=== PATIENT | female | born 1950 | race Caucasian/White ===

== ENCOUNTER 2020-03-17 15:26 | Inpatient (IN) | payer OTHER ==
[~2020-03-17] VITALS: Ht 167.6 cm; Wt 70.8 kg
[~2020-03-17 15:26] MED LIST: AMBIEN5 MG PO; ARISTADA882 MG/3.2 IM; ATIVAN2 MG PO; FLEET ENEMA133 ML RECTAL; HALOPERIDOL 1 MG1 MG PO; LEVO-T25 MCG PO; LORAZEPAM 2MG2 MG/M1 IM; MILK OF MA400 MG/5 M PO; TYLENOL325 MG PO; VITAMIN D250 MC1 PO
[2020-03-17 17:36] VITALS: BP 135/54
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
[2020-03-17 20:00] VITALS: BP 130/75
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
[2020-03-18 02:02] VITALS: BP 135/54
[2020-03-18 08:39] VITALS: BP 140/86
--- NOTE | 2020-03-18 09:23 | NUR ---
SW called and left a VM for spouse/DPOA to call back to complete th intake and TP.
--- NOTE | 2020-03-18 11:36 | NUR ---
Met with patient in hallway and room to complete initial recreation assessment. Patient was not forth coming with information, appearing suspicious - asking name, title, how long her stay will be, etc. Patient appeared depressed in affect, sat on the edge of her bed, head held to her chest. She asked, "I want to wear this sweater. Why will they hurt me if I wear it?" She could not answer who "they" were. Little information for assessment was gathered as patient stated, "I don't want to talk anymore" and became silent.
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
[2020-03-18 19:19] VITALS: BP 115/52
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
[2020-03-19 07:38] VITALS: BP 125/70
--- NOTE | 2020-03-19 11:15 | NUR ---
SW called spouse to set up a fmaily meeting for tomorrow and left another VM.
--- NOTE | 2020-03-19 11:22 | NUR ---
SUKHWINDER faxed updates to [facility]
--- NOTE | 2020-03-19 11:44 | NUR ---
SUKHWINDER spoke with son Sky who stated he was also a decision maker for his mom. He stated that his dad is not available to help with this admission or d/c. Sukhwinder set up a family meeting for 03/21 at 11 am. Reported this to DR Amos. Sukhwinder completed the intake assessment and TP. Pt has lives at [facility] for at least 1 year and is expected to d/c back there.
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
[2020-03-19 17:38] VITALS: BP 125/70
[2020-03-19 20:01] VITALS: BP 145/65
[2020-03-19 21:31] VITALS: BP 145/65
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
--- NOTE | 2020-03-20 07:51 | EKG ---
[facility] [place] [address] [place] [address] ELECTROCARDIOGRAM REPORT Name: JEAN-PIERRE EPPS Room #: 52-A ADM IN M.R.#: [id number] Admission: 03/17/20 Attend Phys: Mariano Amos DO Discharge: Date of : 50 Report #: [id number] THIS REPORT FOR: cc: Isiah Kim MD, Srinath MD Lundgren,Lorenzo Gonzalez MD [facility] ~ THIS REPORT FOR: //name// [facility] Test Date: 2020-03-19 Test Time: 11:21:54 Pat Name: JEAN-PIERRE EPPS Department: Room: 52 A Gender: F Switchboard Clerk: ISABEL : 1950 Requested By: Mariano Amos Order Number: [id number] MD: Lorenzo Aguilar Measurements Intervals [place] Rate: 58 P: 66 [place]: 188 QRS: 44 QRSD: 82 T: 48 QT: 384 QTc: 378 Interpretive Statements Sinus bradycardia Otherwise normal tracing No previous ECG available for comparison Electronically Signed On 03-20-2020 7:51:32 CDT by Lorezno Aguilar [email or web address] <ELECTRONICALLY SIGNED> By: Lorenzo Aguilar MD, [facility] 03/20/20 0751 [id number] [id number] Lorenzo Aguilar MD, [facility] /EPI
--- NOTE | 2020-03-20 09:42 | NUR ---
Pt was inbed when i first came on duty. When I asked how she was feeling she said she had to rest today, she was "going home today " as her Dr had told her last night. This can not be substanuated in chart. Edith needed encouragement on attenting group this am. Medications taken as ordered, and said she was not that hungry this Am. On assessment, lungs clear x2, pedal pulse equal, boewl sounds faint. last bm yesterday. I asked edith to let nurse know if she has one today. Fluids encouraged.
[2020-03-20 11:19] VITALS: BP 145/65
[2020-03-20 13:12] VITALS: BP 115/42
[2020-03-20 19:25] VITALS: BP 107/66
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
[2020-03-21 07:41] VITALS: BP 127/90
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
[2020-03-21 11:35] VITALS: BP 127/90
[2020-03-21 11:55] LABS: ABSOLUTE NEUTROPHILS 4.4 thou/uL (1.4-8.2); BASOPHILS 0.4 % (0.0-2.0); EOSINOPHILS 0.4 % (0.0-3.0); HEMATOCRIT 43.7 % (37.0-47.0); HEMOGLOBIN 14.7 gm/dL (12.0-15.0); LYMPHOCYTES 23.7 % (24.0-44.0); MCH 30.7 pg (26.0-34.0); MCHC 33.5 g/dL (28.0-37.0); MCV 91.7 fL (80.0-100.0); MONOCYTES 6.2 % (1.0-8.0); PLATELET COUNT 218 thou/uL (150-400); POLYS 69.3 % (36.0-66.0); RBC 4.77 mil/uL (4.20-5.00); RDW 13.6 % (10.5-14.5); WBC 6.3 thou/uL (4.0-11.0)
[2020-03-21 12:13] LABS: CALCIUM 9.5 mg/dL (8.5-10.1); POTASSIUM 3.7 mmol/L (3.5-5.1)
[2020-03-21 12:19] LABS: ALBUMIN 4.2 g/dL (3.4-5.0); TOTAL BILIRUBIN 0.5 mg/dL (0.2-1.0); TOTAL PROTEIN 7.4 g/dL (6.4-8.2)
--- NOTE | 2020-03-21 13:56 | NUR ---
SW attmpted to have a family meeting with pt's son but we could not find the amendment to the [employer], so we requested this information from [facility] per son Sky suggestion. SUKHWINDER then faxed updates to [facility].
[2020-03-21 14:20] LABS: URINE BILIRUBIN NEGATIVE (Negative); URINE BLOOD NEGATIVE (Negative); URINE CLARITY CLEAR; URINE COLOR YELLOW; URINE GLUCOSE-RANDOM* NEGATIVE (Negative); URINE KETONES NEGATIVE (Negative); URINE LEUKOCYTES-REFLEX TRACE (Negative); URINE NITRITE-REFLEX NEGATIVE (Negative); URINE PROTEIN (DIPSTICK) NEGATIVE (Negative); URINE SPECIFIC GRAVITY <= 1.005 (1.005-1.035); URINE UROBILINOGEN 0.2 E.U./dl (0.2-1.0)
[2020-03-21 19:30] VITALS: BP 122/55
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
[2020-03-22 09:12] VITALS: BP 125/59
--- NOTE | 2020-03-22 13:04 | NUR ---
Alert and orientated to person, place but not to time or situation. Took Haldol this AM without difficulty but refused 3 tablets of her vitamin D3 stating that if she took too much her arms would shake. Knew that she was at [facility] but thought it was in [place], [place]. Affect flat but more interactive today. Wanted to go to 6th floor but understood when explained why that wasn't possible. Denies SI/HI. Breath sounds clear t/o. Reg HR auscultated. Color pale pink with brisk capillary refill and palpable peripheral pulses. +1 non pitting edema. Independent with voiding. Active bowel sounds over soft, rounded abdomen. States she had BM this AM. Smear of stool around rectum, yellow-brown. Ambulates with regular, steady, slow gait.
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
[2020-03-23 05:40] VITALS: BP 122/66
[2020-03-23 07:47] VITALS: BP 139/70
--- NOTE | 2020-03-23 09:05 | NUR ---
Assumed care at 0700. Patient was exit seeking waiting for someone to come onto the unit so she could pass by them. She declined breakfast, paced up/down the halls. Angry upon approach.
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
[2020-03-23 21:00] VITALS: BP 122/55
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
[2020-03-24 08:52] VITALS: BP 112/61
[2020-03-24 12:59] VITALS: BP 112/61
--- NOTE | 2020-03-24 15:53 | NUR ---
MEAGAN and dr Amos spoke with Mike spouse and guardian about d/c plans and it was decided to pursue LTC with memory care. Mike is currently getting rehab at , and asked the referral be sent there. Talia at reported that their memory care was full but to sent the referral there anyway. Mike wants to stay in the [place] area, so meagan [facility]
--- NOTE | 2020-03-24 16:16 | NUR ---
[facility] declined due to being full.
[2020-03-24 21:20] VITALS: BP 112/61
--- NOTE | 2020-03-25 08:47 | EKG ---
[facility] [place] [address] ELECTROCARDIOGRAM REPORT Name: JEAN-PIERRE EPPS Room #: 52-A ADM IN M.R.#: [id number] Admission: 03/17/20 Attend Phys: Mariano Amos DO Discharge: Date of : 50 Report #: [id number] THIS REPORT FOR: cc: Isiah Kim MD, Srinath MD Lundgren,Lorenzo Gonzalez MD [facility] ~ THIS REPORT FOR: //name// [facility] Test Date: 2020-03-24 Test Time: 17:01:04 Pat Name: JEAN-PIERRE EPPS Department: Room: 52 A Gender: F Bookkeeping Machine Operator: Martell REED : 1950 Requested By: Mariano Amos Order Number: [id number] MD: Lorenzo Aguilar Measurements Intervals [place] Rate: 65 P: 75 [place]: 198 QRS: 44 QRSD: 101 T: 55 QT: 451 QTc: 469 Interpretive Statements Sinus rhythm Borderline prolonged QT interval Baseline wander in lead(s) V5 Compared to ECG 03/19/2020 11:21:54 Nonspecific change in the T waves Electronically Signed On 03-25-2020 8:46:54 CDT by Lorenzo Aguilar [email or web address] <ELECTRONICALLY SIGNED> By: Lorenzo Aguilar MD, [facility] 03/25/20 0846 00 00 Lorenzo Aguilar MD, [facility] /EPI
--- NOTE | 2020-03-25 09:08 | NUR ---
PT SITTING AT END OF BURT ESCALERA IN A CHAIR. PT HAS EYES CLOSED. ASKED PT IF SHE WANTED WATER OR SOMETHING TO DRINK. PT STATED GO AWAY. ASKED PT IF SHE WOULD TAKE HER HALDO FOR THIS DISBURSING OFFICER SINCE SHE TOOK IT LAST NIGHT, PT DIDN'T ANSWER AT THIS TIME. WILL CHECK BACK IN 30 MIN.
--- NOTE | 2020-03-25 09:49 | NUR ---
PT NOT TAKING MEDICATION. TRIED TO CRUSH HALDOL AND PUT IN APPLE JUICE. PT NEEDED TO GET INJECTION OF HALDOL. ASSISTANCE WITH [address] BHAT, ADM HALDOL 10MG IM. PT WAS ABLE TO STAND WITH ASSISTANCE FROM CHAIR TO W/C AND WHEELED TO ROOM. PT ABLE TO STAND AND LAY DOWN ON THE BED WITHOUT RESISTANCE.
--- NOTE | 2020-03-25 15:42 | NUR ---
PT LAYING IN BED ON HER SIDE. PT LOOKING OUT THE WINDOW. PT REFUSED TO GO TO GROUP. TOLD PT SHE CAN TALK TO THIS SEQUINS STRINGER IF SHE WANTED TO. ASKED PT IF SHE WOULD TAKE PO HALDOL SHE SAID YES. THEN ASKED OK CAN I GIVE IT NOW SHE SAID WELL SHE WOULD THINK ABOUT IT.
--- NOTE | 2020-03-25 16:01 | NUR ---
PT DID TAKE HALDOL WITHOUT ANY ISSUES. PT STATED I HAVE TO TAKE 2 OF THEM. PT SLOW TO TAKING MED CUP. PT VERY PERTICULAR ABOUT WHERE SHE WANTS HER WATER PITCHER ON THE SIDE TABLE.
--- NOTE | 2020-03-25 16:20 | NUR ---
Pt was invited but unable to participate romain hse was sleeping
--- NOTE | 2020-03-25 17:24 | NUR ---
PT WAS AFRAID TO WALK OUT TO DINING ROOM DUE TO THE 2 PILLS SHE TOOK. PT TAKEN TO DINING ROOM VIA RAKESH CHAIR. PT DIDN'T WANT ANYONE TO HELP HER TO GET INTO THE CHAIR OR TRANSFER OVER TO REG. IN DINING ROOM. PT EATING DINNER AT THIS TIME.
[2020-03-25 19:25] VITALS: BP 115/46
--- NOTE | 2020-03-26 04:12 | NUR ---
03-25-20 CARE TRANSFERED 1914 OBSERVED PT RIGHT SIDE LYING RESTING WITH EYES CLOSED IN BED. 2015 PT AAOX2, SKIN W/D, RR EVEN AND NONLABORED ON RA, PT DENIES PAIN AND SI/SH/HI/VAH AT THIS TIME. PT REMAINED CALM AND COOPERATIVE DURING NURSING ASSESSMENT. DURING MEDICATION ADMIN PT BECAME COMBATIVE WITH DELUSIONS OR MANIPULATION STATING "THE ANGLES TELL ME I DON'T NEED TO TAKE THIS MEDICATION, GET OUT OF MY ROOM"; WAITED AND DID MEDICATION ADMIN WITH ROOMMATE AND REPROACH PT ABOUT TAKING HER MEDICATION AND PT STARTED AGAIN WITH "I AM NOT SUPPOSED TO TAKE THAT MEDICATION" SPINNING A DIFFERENT ANGLE ABOUT HER DOCTOR DOES NOT WANT HER TO TAKE IT AND NO SHE DOES NOT HAVE AN IM. PT NON-COMPLIANT WITH 10MG HALDOL PM AND 10MG HALDOL IM LEFT DELTOID ADMIN. PT STARTED VERBAL ABUSING STAFF AND STATED "YOU ALL ARE WICKED WOMEN" DURING NEXT ROUND NOTED PT WAS STANDING BY ROOMMATE AREA WITH ROOMMATE'S GLASSES ON AND GLASS CASE IN HER HAND, HAD TO ASSIST PT WITH REMOVAL OF ROOMATE GLASSES AND GLASS CASE WAS RETRIVED BY FINGER COBBLER AND RN TOGETHER. PT STATED "YOU ARE A LAIR AND A VERY WICKED, NASTY WOMAN". DURING NEXT ROUND NOTED PT RIGHT SIDE LYING RESTING IN BED WITH EYES CLOSED. APPROXIMATELY 0350 NOTED PT WALKING TOWARDS DINING ROOM, WILL CONTINUE TO MONITOR PT PER [facility] PROTOCOL. ZERO S/S OF ACUTE EMOTIONAL OR MEDICAL DISTRESS NOTED.
[2020-03-26 07:49] VITALS: BP 146/62
--- NOTE | 2020-03-26 09:52 | NUR ---
Assumed care 0700. Chanting periodically. Declined Haldol PO, given IM. Ptient reports she is going to court today at 1500 (3PM.) Gave no purpose. Stted she already had breakfast-which she did not have. Ate smll amount of breakfast with room lockout. Went to restroom. Was in there at least 45 minutes. Denied having constipation, declined offer of stool softener/laxative. Stated she is hearing voices. She is hearing God's voice and is being told : The enemy is fighting me and doesn't want to talk to this nurse.
--- NOTE | 2020-03-26 10:46 | NUR ---
Has been excorted away from the exit door to the unit x 4. Doesn't want to be touched. Threatens staff with losing their eyesight if she is touched. Will not comply with staying in her room or the dayroom.
--- NOTE | 2020-03-26 11:09 | NUR ---
DUE TO PT ELOPING THREE OTHER TIMES, SHE IS BEING ASKED TO NOT STAND BY THE DOOR. SHE IS REDIRECTED AWAY FROM THE DOOR. WHEN SHE SEES THIS STERILIZATION TECH, SHE STARTS POINTING AT ME AND TALKING YIDDISH (UNINTELLIGABLE CONVERSATION). SHE HAS BEEN TAKEN FROM THE DOOR THREE TIMES. SHE LOOKS AT ME AND STATES, "IF YOU TOUCH ME YOU WILL GO IMMEDIATELY BLIND!"
--- NOTE | 2020-03-26 12:04 | NUR ---
SW received a VM from [facility] that they are now interested in the pt when she is ready to d/c.
--- NOTE | 2020-03-26 18:25 | NUR ---
ASSUMED CARE AT 0700 THIS MORNING. PT. HAS BEEN IRRITABLE, EXIT SEEKING, REFUSING MEALS, BELIGERENT AT TIMES. SHE TOLD ALL STAFF THEY WOULD GO BLIND IF THEY TOUCHED HER. SHE WAS PLACED 1:1 FOR THE BULK OF THE DAY DUE TO THE CONTINUED IRRITABILITY AND EXIT SEEKING. STAFF TOOK HER AWAY FROM THE DOOR REPEATEDLY (> 7 TIMES) TODAY BEFORE SHE WAS PLACED ON THE 1:1. SHE WAS GIVEN 2 IM'S OF HALDOL AND ONE OF ATIVAN 1 MG. TODAY. SHE REFUSED PO MEDICATIONS TODAY. SHE EVENTUALLY CALMED DOWN AND WAS FOLLOWING SOME DIRECTIONS OF STAFF. SHE ATE BREAKFAST BUT ATE POORLY AT LUNCH. WHEN WORKING WITH THIS RN SHE WILL POINT A FINGER AND BABBLE SOME GIBBERISH AND SAY SHE IS CURSING ME. SHE CONTINUES TO CALL ME BY ANOTHER NAME AND INSIST I AM A MAN AND I WILL GO TO [facility] FOR DRESSING A WOMAN
[2020-03-26 18:32] VITALS: BP 146/62
[2020-03-26 19:37] VITALS: BP 120/69
--- NOTE | 2020-03-27 04:46 | NUR ---
03-26-20 CARE TRANSFERED 1914 OBSERVED PT SUPINE IN BED RESTING WITH EYES CLOSED. 2019 PT AAOX2, SUPINE IN BED RESTING WITH EYES CLOSED, EASILY AROUSABLE. PT CLOSED EYES AND REMAINED CALM DURING NURSING ASSESSMENT, PT DENIES SI/SH/HI/VAH AND PAIN AT THIS TIME. DURING MEDICATION ADMIN. PT STATED "I WON'T TAKE THAT MEDICATION FROM YOU EVIL WOMAN"; A FEW MINUTES LATER AND PT STATED "GOD TOLD BE IT IS OK TO TAKE THE MEDICATION". PT HAS BEEN KNOWN TO CHEEK MEDICATION AND PT STATED "GO AWAY YOU EVIL WOMAN" RN MOVED OUT OF ROOM AND NOTED PT GOING INTO BATHROOM AND HEARD TOILET FLUSH. LATER PT WAS UP AND PRESENTED GROSSLY AGITATED PRN HALDOL IM DELIVERED TO RIGHT DELTOID; PT HAS BEEN UP WALKING HALLWAY OR STANDING BY DOOR EXITING SEEKING. LATER MOVED CHAIR DOWN BY CHAIR AND NOTED PT HAD ALTERNATED FROM SITTING TO STANDING NOTED PT HAS BEEN TALKING TO HER SELF. THROUGHOUT NURSING ROUNDS ZERO S/S OF ACUTE EMOTIONAL OR MEDICAL DISTRESS. WILL CONTINUE TO MONITOR PER [facility] PROTOCOL.
[2020-03-27 07:25] VITALS: BP 128/70
--- NOTE | 2020-03-27 09:43 | NUR ---
0700 ASSUMED CARE OF PATIENT, PATIENT SITTING IN THE WEST HALLWAY NEAR EXIT. PATIENT REFUSED BREAKFAST AT 8AM STATING GOD TOLD HER SHE DOES NOT NEED TO EAT. PATIENT MOVES TO END OF THE ESCALERA STANDING INFRONT OF HER ROOM. PATIENT REFUSED MEDICATION STATING "GOD TOLD ME NOT TO TAKE THEM". PATIENT DID SIT AND EAT A FEW BITE OF BREAKFAST, CONTINUES TO REFUSE MEDICATION. WILL CONTINUE TO OBSERVE
--- NOTE | 2020-03-27 11:58 | NUR ---
PATIENT REFUSED PO MEDICATION THIS AM. 1000 AM HALDOL 10MG IM GIVEN TO LEFT BUTTOCKS WITH ASSISTANCE FROM DIRECTOR OF CODING. PATIENT STATES "GOD DID NOT SAY IT WAS OK FOR THAT". WILL CONTINUE TO OBSERVE
--- NOTE | 2020-03-27 18:38 | NUR ---
AT 1525 HALDOL 12.5 MG IM GIVEN TO RIGHT BUTTOCKS. PATIENT REFUSING PO MEDICATION. PATIENT CONTINUES TO REFER TO GOD STATES IM NOT TO TAKE ANY MEDICATION. PATIENT TALKS FAST AT TIMES AND UNABLE TO UNDERSTAND.
[2020-03-27 23:00] VITALS: BP 128/70
--- NOTE | 2020-03-28 01:30 | NUR ---
Assumed care of patient this pm shift. Patient was wondering the halls and watching the main doors, occassionally standing in front of them waiting for the doors to open. Patient was redirected away from the exit points. Patient is pleasant and states that she has conversations with Tony who either approves or denies decisions to take medications or vital signs. Patient accepted her haldol this evening but would not take her lorazapam as she states "Tony told me not to take it." Patients assessment shows no signs of acute distress. Patients breath sounds are clear, bowel sounds present, and s1 s2 heard with auscultation. Patients affect is flat. Patient is alert and oriented to self and place. Patient ambulates without assistance. We will continue to monitor patient for safety per hospital protocol.
[2020-03-28 07:24] VITALS: BP 109/41
[2020-03-28 11:31] VITALS: BP 140/56
[2020-03-28] MEDS ORDERED: HALOPERIDOL 5 MG5 MG PO (12:05)
[2020-03-28] MEDS ORDERED: LORAZEPAM 0.50.5 MG PO (12:06)
[2020-03-28] MEDS ORDERED: VITAMIN D325 MC1 PO (12:06)
[2020-03-28 12:12] LABS: CALCIUM 9.2 mg/dL (8.5-10.1); CREATININE 0.9 mg/dL (0.6-1.0); POTASSIUM 4.5 mmol/L (3.5-5.1)
--- NOTE | 2020-03-28 12:30 | NUR ---
PT RELIGIOUSLY PREOCCUPIED AND DELUSIONAL UPON INITIAL ASSESSMENT IN ROOM THIS AM AT 0830-DID EAT BITES OF FOOD AND ENSURE WITH MUCH COAXING. GAIT STEADY-DENIES C/O PAIN/DISCOMFORT. ORIENTED TO NAME ONLY. ON FIRST APPROACH REFUSED MEDS BUT DID TAKE APPROX 15-20 MINUTES LATER WHEN INFORMED WOULD RECEIVE IM MED IS PO REFUSED. EKG ORDERED AND COMPLETED AT APPROX [id number]. BHAT ON UNIT AND DR. MENDEZ CALLED AND ON UNIT TO REVIEW EKG -UPON ASSESSMENT AT 1120 IS LYING IN BED-MILDLY SOMULENT BUT RESPONDS TO VERBAL COMMANDS-DID SIT UP IN BED AND BEGIN CONVERSING WITH STAFF-DENIES PAIN/DISCOMFORT. SKIN PALE-NO DIAPHORESIS-WARM AND DRY. BP 140/56- P-69 R-14 O2 SAT 98 PERCENT. DECISION MADE MY DR MENDEZ TO DC PT TO CCU- GUARDIAN LUIS EPPS CONTACTED AND INFORMED OF ABOVE-NURSING SUPPERVISOR CONTACTED AND REPORT CALLED TO CARLOS IN CCU-TO GO TO ROOM 214-PT DC VIA WC WITH PERSONAL BELONGINGS ACCOMPNIED BY NURSING STAFF AT [id number] AT TIME OF DC-DENIES COMPLAINTS.
--- NOTE | 2020-03-28 16:53 | EKG ---
[facility] [place] [address] [address] ELECTROCARDIOGRAM REPORT Name: JEAN-PIERRE EPPS Room #: [facility] IN M.R.#: [id number] Admission: 03/17/20 Attend Phys: Mariano Amos DO Discharge: 03/28/20 Date of : 50 Report #: [id number] THIS REPORT FOR: cc: Isiah Kim MD, Srinath MD Lundgren,Lorenzo Gonzalez MD [facility] THIS REPORT FOR: //name// [facility] Test Date: 2020-03-28 Test Time: 11:15:30 Pat Name: JEAN-PIERRE EPPS Department: Room: [facility] A Gender: F 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 : 1950 Requested By: Mariano Amos Order Number: [id number] MD: Lorenzo Aguilar Measurements Intervals [place] Rate: 49 P: 78 KS: 170 QRS: 72 QRSD: 108 T: 83 QT: 497 QTc: 449 Interpretive Statements Sinus bradycardia with sinus arrhythmia Diffuse ST elevation consider early repolarization, pericarditis, or injury Compared to ECG 03/24/2020 17:01:04 QT interval has shortened Repolarization abnormality is new Electronically Signed On 03-28-2020 16:53:06 CDT by Lorenzo Aguilar [email or web address] <ELECTRONICALLY SIGNED> By: Lorenzo Aguilar MD, [facility] 03/28/20 1653 1115 1115 Lorenzo Aguilar MD, [facility] /EPI
== END 2020-03-28 12:45 | disposition short-term general hospital (02) | DRG 885 ==
LOC: SBH
PROVIDERS: ADMIT Psychiatry & Neurology Psychiatry; ATTEND Psychiatry & Neurology Psychiatry
DX: F31.9 Bipolar disorder, unspecified (principal); F01.50 Vascular dementia, unspecified severity, without behavioral disturbance, psychotic disturbance, mood disturbance, and anxiety; F23 Brief psychotic disorder; F29 Unspecified psychosis not due to a substance or known physiological condition; E03.9 Hypothyroidism, unspecified; M19.90 Unspecified osteoarthritis, unspecified site; E66.9 Obesity, unspecified; F41.1 Generalized anxiety disorder; I44.1 Atrioventricular block, second degree; Z68.25 Body mass index [BMI] 25.0-25.9, adult; Z88.8 Allergy status to other drugs, medicaments and biological substances
CPT/HCPCS: 10880

== ENCOUNTER 2020-03-28 12:17 | Inpatient (IN) | payer OTHER ==
[~2020-03-28] VITALS: Ht 167.6 cm; Wt 71.4 kg
[~2020-03-28 12:17] MED LIST changes: +HALOPERIDOL 5 MG5 MG PO; +LORAZEPAM 0.50.5 MG PO; +VITAMIN D325 MC1 PO
[2020-03-28 13:00] VITALS: BP 132/61
[2020-03-28 14:19] LABS: CHOLESTEROL 148 mg/dL (<200); HDL CHOLESTEROL 48 mg/dL (>40); LDL CHOLESTEROL 87 mg/dL (<100); SERUM ASSESSMENT Clear; TC:HDL 3.1 Ratio (Not establshd); TRIGLYCERIDE 67 mg/dL (<150); VLDL 13 mg/dL (<40)
[2020-03-28 14:20] LABS: TSH 0.777 uIU/mL (0.358-3.740)
[2020-03-28 16:05] VITALS: BP 142/68
[2020-03-28 16:15] VITALS: BP 142/68
[2020-03-28 16:36] LABS: HEMATOCRIT 36.7 % (37.0-47.0); HEMOGLOBIN 12.3 gm/dL (12.0-15.0); MCH 30.7 pg (26.0-34.0); MCHC 33.5 g/dL (28.0-37.0); MCV 91.7 fL (80.0-100.0); RBC 4.01 mil/uL (4.20-5.00); RDW 13.7 % (10.5-14.5); WBC 6.1 thou/uL (4.0-11.0)
--- NOTE | 2020-03-28 16:56 | EKG ---
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 LEES : 1950 Requested By: Janina Fontaine Order Number: [id number] MD: Lorenzo Aguilar Measurements Intervals [place] Rate: 45 P: 66 KS: 166 QRS: 69 QRSD: 135 T: 79 QT: 532 QTc: 461 Interpretive Statements Sinus bradycardia Diffuse ST elevation consider early repolarization, pericarditis, or injury Compared to ECG 03/28/2020 11:15:30 No significant change was found Electronically Signed On 03-28-2020 16:56:09 CDT by Lorenzo Aguilar [email or web address] <ELECTRONICALLY SIGNED> By: Lorenzo Aguilar MD, [facility] 03/28/20 1656 1400 1400 Lorenzo Aguilar MD, [facility] /EPI
--- NOTE | 2020-03-28 20:13 | NUR ---
PT CARE ASSUMED AT 1400. ASSESSMENT CHARTED. MEDICATION CHARTED. PT HAS SCHIZOPHRENIA. PULLED OFF HER LEADS AND WANTED TO LEAVE. SAYS THAT ALEJA TOLD HER SHE CAN LEAVE. RN CALLED SPOUSE IN AN ATTEMPT TO GET HER TO AGREE TO IV PLACEMENT; WE MANAGED TO GET IT PLACED. PT IS VERY IRRITATED FROM TIME TO TIME. 24 HOUR URINE STARTED AT 1400.
[2020-03-28 21:21] VITALS: BP 142/46
[2020-03-29 06:00] VITALS: BP 142/64
[2020-03-29 06:58] LABS: ALBUMIN 3.1 g/dL (3.4-5.0); CALCIUM 8.9 mg/dL (8.5-10.1); CREATININE 0.9 mg/dL (0.6-1.0); PHOSPHORUS 3.2 mg/dL (2.5-4.9); POTASSIUM 3.6 mmol/L (3.5-5.1)
[2020-03-29 08:18] VITALS: BP 127/56
--- NOTE | 2020-03-29 08:59 | NUR ---
ASSUME CARE 1900. PT/VITALS STABLE. PT IS VERY CONFUSED AND CONSISTENTLY WAITS ON ALEJA TO GIVE HER PERMISION TO DO ANYTHING. SHE UNDERSTANDS THAT SHE IS HERE BECAUSE OF HEART DISEASE, WHICH SHE DENIES HAVING ANY ISSUES WITH HER HEART. SHE ALSO UNDERSTANDS SHE IS AT [facility] BUT CONTINUES TO MAKE INCONPREHENSIBLE SENTENCES (TALKING IN TONGUES) PER PT AND CALLING ON ALEJA TO MAKE A DECISION FOR HER. SB ON MONITOR AT 40s-50s, AND DIPS TO 30s BUT DOES NOT SUSTAIN. ASSESSMENT CHARTED. PROGRESSING SLOWLY WITH POC. NO DISTRESS NOTED THROUGH THE NIGHT. WILL CONTINUE TO TO MONITOR AND FOLLOW WI POC
[2020-03-29 15:15] LABS: COLLECTION DURATION 24 hours; TOTAL VOLUME 1200 mL
[2020-03-29 15:22] LABS: URINE PROTEIN (MG/DL) < 6.0 mg/dL; URINE PROTEIN mg/24 hr ND mg/24hr (<149.1)
--- NOTE | 2020-03-29 15:51 | NUR ---
ASSUMED CARE AT SHIFT CHANGE, ALERT TO SELF ONLY, AND VSS. SR-SB ON THE MONITOR. ASSESSMENT DOCUMENTED. PATIENT REMAINS CONFUSED AT TIMES, AND WAITING FOR ALEJA TO GIVE HER PERMISSION WHEN MEDS OFFERED AND WHEN GETTING UP TO GO TO REST ROOM. PATIENT VOIDING W/O ANY DIFFICULTIES, AND 24 HOUR URINE COLLECTION COMPLETED. PATIENT REUSED NOUN VS, AND RESTING ON AND OFF. AND WILL CONTINUE WITH POC.
[2020-03-29 21:54] VITALS: BP 169/48
[2020-03-30 04:25] VITALS: BP 143/61
--- NOTE | 2020-03-30 05:18 | NUR ---
ASSUME CARE 1900. PT/VITALS STABLE. NO PAIN NOTED. GOOD TOLERANCE WITH ACTIVITY. A/O TO PERSON, PLACE AND SITUATION BUT IS VERY DELUSIONAL. ASSESSMENT CHARTED. PROGRESSING MODERATELY WITH POC. NO DISTRESS NOTED. ADEQUATE REST NOTED. IMPROVED URINE OUTPUT NOTED. SW FOR DISCHARGE PLANNING. WILL CONTINUE TO MONITOR AND FOLLOW WITH POC
[2020-03-30 07:40] VITALS: BP 120/84
[2020-03-30] MEDS ORDERED: ENOXAPARIN40 MG/0.1 SUBQ (10:01)
[2020-03-30] MEDS ORDERED: NITROGLYCERIN0.4 MG SUBLING (10:01)
[2020-03-30] MEDS ORDERED: AMBIEN 5 MG TABL5 M1 PO (10:02)
[2020-03-30] MEDS ORDERED: LASIX 40 MG TAB40 MG PO (10:03)
--- NOTE | 2020-03-30 11:19 | NUR ---
ASSUMED CARE AT SHIFT CHANGE, ALERT AND ORIENTED 1-2, FORGETFUL,CONFUSED AND DELUSIONAL. VSS AND AFEBRILE, AND HEART RATE WITHIN NORMAL. REPORT GIVEN TO RN SBH, AND PATIENT WILL BE TRANSFERED.
--- NOTE | 2020-03-31 07:48 | EKG ---
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
== END 2020-03-30 13:13 | DRG 309 ==
LOC: 2N 12:17
PROVIDERS: Nurse Practitioner; ADMIT Hospitalist; ATTEND Hospitalist
DX: R00.1 Bradycardia, unspecified (principal); E44.0 Moderate protein-calorie malnutrition; E03.9 Hypothyroidism, unspecified; R60.1 Generalized edema; I10 Essential (primary) hypertension; F20.9 Schizophrenia, unspecified; L65.9 Nonscarring hair loss, unspecified; M19.90 Unspecified osteoarthritis, unspecified site; F31.9 Bipolar disorder, unspecified; F41.9 Anxiety disorder, unspecified; E78.5 Hyperlipidemia, unspecified; Z88.8 Allergy status to other drugs, medicaments and biological substances; Z68.25 Body mass index [BMI] 25.0-25.9, adult
CPT/HCPCS: 10797

== ENCOUNTER 2020-03-30 13:58 | Inpatient (IN) | payer OTHER ==
[~2020-03-30] VITALS: Ht 162.6 cm; Wt 67.2 kg
[~2020-03-30 13:58] MED LIST changes: +AMBIEN 5 MG TABL5 M1 PO; +ENOXAPARIN40 MG/0.1 SUBQ; +LASIX 40 MG TAB40 MG PO; +NITROGLYCERIN0.4 MG SUBLING
[2020-03-30 14:32] VITALS: BP 125/76
--- NOTE | 2020-03-30 16:36 | NUR ---
1620 RETURNING PATIENT FROM [address] [place] [address] FOR BRADYCARDIA DUE TO MEDICATION. PATIENT QUIET AFFECT FLAT PATIENT IS REFUSING TO EAT OR DRINK. PATIENT REFUSED HER BREAKFAST AND LUNCH FROM PREVIOUS UNIT. PATIENT IS FROM [facility]. PATIENT WAS PSYCHOTIC AND WAS CONSTANTLY YELLING ABOUT ALEJA AND NOT DOING ADL'S. PATIENT UPON ENTERING THE UNIT DID ALLOW ME TO DO ASSESSMENT. PATIENTS ABDOMEN SOFT ROUND BOWEL SOUNDS PRESENT LUNGS CLEAR, PATIENT STATES SHE DOES NOT WANT ANYTHING FROM US. PATIENT DID NOT ANSWER ABOUT SI/HI/AH/VH AT PRESENT. PATIENT HAD HAND OVER MOUTH AND WAS SHAKING HER HEAD NO, PATIENTS CALLED AND SHE WOULD NOT TALK TO HIM. HER STATES SHE HAS NOT TALKED TO HIM IN AWHILE BECAUSE SHE BLAMES HIM FOR BEING HERE. I TRIED TO OFFER PATIENT JELLO, YOGART SOMETHING TO DRINK SHE REFUSES. WILL CONTINUE TO MONITOR PATIENT FOR BEHAVIORS AND SAFETY.
--- NOTE | 2020-03-30 20:59 | NUR ---
Care of patient assumed at 1915. This nurse enters patient's room to orient patient to shift and nurse. Patient refuses to open her eyes and covers her mouth, making it hard to hear her. Patient refuses to allow assessment to be done. States she is refusing all meds, will not allow staff to touch her, and will not eat or drink anything. This nurse tries to get her to disclose reasons why, but she will not elaborate. Re-entered room at 2014 to attempt to administer HS meds. Patient refuses both oral Trazodone and newly ordered Lovenox.
[2020-03-31 07:16] VITALS: BP 110/41
[2020-03-31 09:45] VITALS: BP 110/41
--- NOTE | 2020-03-31 11:45 | NUR ---
RESUMMED CARE FROM OVERNIGHT SHIFT THIS AM, PATIENT IN BEDROOM LYING IN BED QUIETLY. PATIENT AT FIRST REFUSED HER ASSESSMENT BUT LET ME LATER ON DO HER ASSESSMENT. PATIENT REFUSED BREAKFAST AND HER MEDICATION; SHE LATER GOT UP OUT OF BED AND WAS WALKING THE HALLS TOWARD THE DOOR. PATIENT THEN ASKED FOR HER BREAKFFAST TOOK HER MEDICATION. PATIENT REFUSED HER ECHO CARDIO GRAM THIS AM, DR NGUYEN CAME UP AND SAID SHE WOULD LIKE TO HAVE IT DONE. PATIENT IS NONE COMPLIANT AT TIMES. I INFORMED DR BHAT AND HE STATED HE WOULD CALL THE MEDICAL DOCTOR TO DISCUSS HER STATUS. PATIENT REFUSES TO TELL YOU IF SHE HAS SI/HI/AH/VH AT PRESENT. PATIENT UNDERSTANDS WHAT YOU ARE ASKING HER TO DO BUT SHE IS BEING OPPOSTIONAL. WILL CONTINUE TO MONIOR PATIENT FOR SAFETY AND BEHAVIORS.
--- NOTE | 2020-03-31 12:48 | 2DMMODE ---
[facility] [place] [address] 2 D/M-MODE ECHOCARDIOGRAM Name: JEAN-PIERRE EPPS Room #: 521A-A ADM IN M.R.#: [id number] Admission: 03/30/20 Attend Phys: Mariano Amos DO Discharge: Date of : 50 Report #: [id number] THIS REPORT FOR: cc: Isiah Kim MD, Srinath MD Lundgren,Lorenzo Gonzalez MD [facility] ~ APPROVED REPORT Study performed: 03/31/2020 12:07:33 EXAM: Limited 2D, Doppler, and color-flow Echocardiogram Patient Location: Bedside Room #: 521 Status: routine BSA: 1.72 HR: 82 bpm BP: 110/41 mmHg Rhythm: NSR Other Information Study Quality: Adequate Indications Limited echo for Edema done in the Behavioral Unit. Aortic Valve AoV Peak Berny.: 1.66 m/s AO Peak Gr.: 11.08 mmHg Mitral Valve E/A Ratio: 0.7 MV Decel. Time: 160.36 ms MV E Max Berny.: 0.57 m/s MV A Berny.: 0.77 m/s MV PHT: 46.50 ms Pulmonary Valve PV Peak Berny.: 1.40 m/s PV Peak Gr.: 7.89 mmHg Left Ventricle The left ventricle is normal size. There is normal LV segmental wall motion. Left ventricular systolic function is normal. LVEF is 60-65%. Mild diastolic dysfunction is present (impaired relaxation pattern). [facility] [address] [address] 2 D/M-MODE ECHOCARDIOGRAM Name: JEAN-PIERRE EPPS Room #: 521A-A ADM IN .R.#: [id number] Admission: 03/30/20 Attend Phys: Mariano Amos Discharge: Date of : 50 Report #: [id number] Right Ventricle The right ventricle is normal size. The right ventricular systolic function is normal. Atria The left atrium size is normal. The right atrium size is normal. Aortic Valve Aortic valve leaflets are not well visualized. No aortic regurgitation is present. There is no aortic valvular stenosis. Mitral Valve The mitral valve is normal in structure. Trace mitral regurgitation. Tricuspid Valve The tricuspid valve is normal in structure. There is no tricuspid valve regurgitation noted. Unable to assess PA pressure. Pulmonic Valve Mild pulmonic regurgitation. Great Vessels The aortic root is normal in size. IVC is not well visualized. Pericardium There is no pericardial effusion. <Conclusion> Left ventricular systolic function is normal. There is normal LV segmental wall motion. LVEF is 60-65%. Mild diastolic dysfunction Aortic valve leaflets are not well visualized. No aortic regurgitation or stenosis The mitral valve is normal in structure. Trace mitral regurgitation. Unable to assess pulmonary artery pressure. There is no pericardial effusion. <ELECTRONICALLY SIGNED> By: Lorenzo Aguilar MD, [facility] 03/31/20 1247 1247 1247 Lorenzo Aguilar MD, [facility] /INF
--- NOTE | 2020-04-01 04:24 | NUR ---
03-31-20 CARE TRANSFERED 1914 OBSERVED PT LYING IN BED RESTING WITH EYES CLOSED. 193 PT AAOX1, PT REFUSING VS AND NURSING ASSESSMENT. UNABLE TO ASSESS FOR PAIN OR SI/HI. WHEN ASKING QUESTIONS PT BECOMES HIGHLY AGITATED AND STARTS VERBALLY ABUSING STAFF STATING "YOU ARE A EVIL WOMAN, GOD WILL BLIND YOU, YOU WILL TONIGHT." HCP Sergio BHAT, CONSULTED R/T MEDICATION. DURING MEDICATION ADMIN PT TOOK MEDICATION THEN WALKED INTO BATHROOM, THEN FLUSHED TOILET. PT IS KNOW FOR CHEEKING MEDICATION. LATER APPROACHED PT WITH PO MEDICATION PT REFUSED AND IM WAS ADMIN. PER HCP ORDERS. PT HAS BEEN EXIT SEEKING THROUGHOUT THE EVENING AND REFUSING TO GO TO BED. MELISSA A CHAIR WAS PLACED IN HALLWAY AND NOTED PT HAS ALTERNATED FROM CHAIR TO STANDING AT DOOR. THROUGHOUT NURSING ROUNDS ZERO S/S OF ACUTE EMOTIONAL OR MEDICAL DISTRESS NOTED. WILL CONTINUE TO MONITOR PER [facility] PROTOCOL.
[2020-04-01 07:18] VITALS: BP 136/74
--- NOTE | 2020-04-01 08:05 | H ---
[facility] [place] [address] HISTORY AND PHYSICAL Name: JEAN-PIERRE EPPS Room #: 521A-A ADM IN M.R.#: [id number] Admission: 03/30/20 Attend Phys: Mariano Amos DO Discharge: Date of : 50 Report #: [id number] THIS REPORT FOR: cc: Isiah Kim MD, Srinath MD Kerstein, Andrew H. DO ~ CC: Mariano Alejandro [place] Isiah Kim DATE OF SERVICE: 03/31/2020 INPATIENT PSYCHIATRIC EVALUATION ATTENDING PHYSICIAN: Mariano Amos DO FINANCIAL REPORTING MANAGER: Saranya Cortes MD REASON FOR READMISSION: The patient was sent to medical on Wednesday 03/[address] elevation in multiple leads. REASON FOR PSYCHIATRIC ADMISSION: Gross paranoia and psychosis. History of schizophrenia. HISTORY OF PRESENT ILLNESS: This is a 69-year-old female, quite chronically mentally ill appearing and behaving, who was previously on my service last week, so she spent about a week on the unit and unfortunately developed bradycardia ranging from 49 to low 60s with this ST elevation. I have spoken with Dr. Mathur about her case this morning, and he does not have any concerns for antipsychotic medications nor is the patient meeting criteria for pacemaker nor is the patient having an AR of any sort. The patient is too uncooperative to do routine studies such as an echocardiogram, so that has been canceled. We are facing a difficult situation where the patient was initially admitted for psychotic decompensation, had a concerning medical event which has resolved and now is perhaps even more decompensated from being off antipsychotic medications all weekend. We had been as high as attempting doses of 45 mg a day with haloperidol. I think at this point given poor response to that, we will go a different direction and start her on fluphenazine with forced intramuscular injections. She is under [facility], so it will be 5 mg oral b.i.d. and 2.5 mg IM. REVIEW OF SYSTEMS: Unable to be completed due to the patient's level of psychosis. PAST MEDICAL HISTORY: As follows: Hypothyroidism, degenerative joint disease, history of obesity though not currently. [facility] [address] [place] [address] HISTORY AND PHYSICAL Name: JEAN-PIERRE EPPS Room #: 52-A ADM IN [facility].#: [id number] Admission: 03/30/20 Attend Phys: Mariano Amos DO Discharge: Date of : 50 Report #: [id number] PSYCHIATRIC HISTORY: Includes schizophrenia, depression, anxiety. Also, she was hospitalized for up to 2 months at [facility] earlier this year. I had attempted to get records; thought I had got them last admission, they disappeared only and we have re-requested them and not gotten any more from [facility], so we are sort of stuck there. LABORATORY DATA: From being down on the medical floor, white count 6.1, H and H 12.3 and 36.7, platelet count 162. Chemistry: Sodium 139, potassium 3.6, chloride 104, bicarbonate 25, anion gap 10, BUN 29, creatinine 0.9, estimated GFR 62, glucose 82, calcium 8.9, phosphorus 3.2, magnesium 2.1, total bilirubin 0.5, AST 25, ALT 29, alkaline phosphatase 88. CK was 600 on 03/28. Troponin was less than 0.6. C-reactive protein was less than 2.2, total protein 7.4, albumin 3.1, triglycerides 67, cholesterol 148, LDL 87, HDL 48. B12 level 350, which is low. TSH 0.777. Toxicology was negative at the beginning of the first admission 03/16. Urinalysis is negative. COVID-19 order was done on 03/16, which was not detected. IMAGING: Head CT done on 03/16, which showed no acute intracranial process. Most recent electrocardiogram, though I am sure several were done downstairs, is from 03/29, ventricular rate 68, QT 450, QTc 479, junctional rhythm, minimal diffuse ST segment elevation. No significant change was found. PHYSICAL EXAMINATION: VITAL SIGNS: Today, temperature 37.1, pulse 65, respirations 16, BP 110/41, O2 sat 99%. MUSCULOSKELETAL: She has normal gait and station. SKIN: Alopecia is evidenced in her hair. MENTAL STATUS EXAMINATION: This is a well-developed, ill-appearing female appearing at least stated age. Attention impaired. Concentration impaired. Speech is normal rate, but variably spontaneous. Some psychomotor agitation. No psychomotor retardation. Thought process is tangential. Thought content: Typically ideations of paranoia and it was very difficult to get any meaningful interview with her due to her degree of paranoia and psychosis. She is delusional. I cannot clearly say she has auditory or visual hallucinations, but that is certainly possible. No obvious tactile hallucinations. Does not acknowledge being suicidal or homicidal. Memory is impaired. Insight impaired. Judgment impaired. Fund of knowledge well below average. FORMULATION: A 69-year-old female readmitted to Geriatric Psychiatry from the CCU after concern of bradycardia and ST elevation on her EKG. The patient has been medically cleared. No cardiology contraindications to antipsychotic regimens. PLAN: The patient is admitted to Geriatric Psychiatry to evaluate and [address] [address] HISTORY AND PHYSICAL Name: JEAN-PIERRE EPPS Room #: 521A-A ADM IN ..#: [id number] Admission: 03/30/20 Attend Phys: Mariano Amos, DO Discharge: Date of : 50 Report #: [id number]. She is under [facility]. We will start her on fluphenazine which is generic for Prolixin 5 mg p.o. at 9:00 a.m. and 9:00 p.m. with 2.5 mg IM backup if she refuses. I think this will balance difficulty monitoring this patient as we would have with her refusing blood pressures with chlorpromazine with the need for a typical phenothiazine like antipsychotic effect be desired. The patient is refusing oral nourishment at this point and there is a potential for her to become hemodynamically unstable. We may need to have conversation with her also, who is her guardian about the need for hospice comfort care as I do not think it will be productive to be swinging her back and forth between the Medical Unit and the Geriatric Psych Unit. Time spent on interview, evaluation, review of records approximately 45 minutes. Also, other medications ordered: Ergocalciferol 50,000 International Units weekly, next dose 04/06. Fluphenazine has been reviewed to 5 b.i.d. with 2.[address]. By the way, I started her on 5000 International Units daily vitamin D. As I think about it here, I will go ahead and discontinue the weekly one while she is in the hospital. She is on levothyroxine 25 mcg oral daily, 2 mg t.i.d. of lorazepam which has been discontinued actually on the . Ambien, I discontinued due to psychosis. She is on trazodone 50 mg at bedtime. I discontinued Lovenox, she had refused it. She is on lorazepam 0.5 mg oral 3 times a day that is more reasonable and Lasix 40 mg p.o. daily. We will need to check her electrolytes here this week as well. STRENGTHS: She is insured. She has a guardian. WEAKNESSES: Chronic mental illness, decompensation, medical problems. <ELECTRONICALLY SIGNED> By: Mariano Amos DO 04/01/20 0805 1152 1326 Mariano Amos DO /nt
[2020-04-01 09:13] VITALS: BP 136/74
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
[2020-04-01 10:34] VITALS: BP 136/74
[2020-04-01 15:02] VITALS: BP 123/65
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
[2020-04-01 16:56] LABS: BASOPHILS 0.3 % (0.0-2.0); EOSINOPHILS 0.1 % (0.0-3.0); HEMATOCRIT 43.6 % (37.0-47.0); HEMOGLOBIN 14.6 gm/dL (12.0-15.0); LYMPHOCYTES 12.4 % (24.0-44.0); MCH 30.6 pg (26.0-34.0); MCHC 33.5 g/dL (28.0-37.0); MCV 91.2 fL (80.0-100.0); MONOCYTES 6.4 % (1.0-8.0); PLATELET COUNT 208 thou/uL (150-400); POLYS 80.8 % (36.0-66.0); RBC 4.78 mil/uL (4.20-5.00); RDW 13.6 % (10.5-14.5); WBC 9.9 thou/uL (4.0-11.0)
[2020-04-01 17:06] LABS: CALCIUM 9.3 mg/dL (8.5-10.1); CREATININE 2.5 mg/dL (0.6-1.0); MAGNESIUM 1.9 mg/dL (1.8-2.4); POTASSIUM 4.9 mmol/L (3.5-5.1)
[2020-04-01 19:14] VITALS: BP 129/57
[2020-04-01 19:34] VITALS: BP 132/54
--- NOTE | 2020-04-02 04:11 | NUR ---
04-01-20 CARE TRANSFERED 1899 OBSERVED PT SUPINE IN BED RESTING WITH EYES CLOSED. 1944 PT AAOX2, PT REFUSED NURSING ASSESSMENT AND STATED "YOU WILL TODAY, GO AWAY NOW" PT VSS, RR EVEN AND NONLABORED ON RA. UNABLE TO ASSESS PAIN OR SI/HI. DURING MEDICATION PT REFUSED PO MEDICATION; FOLLOWED HCP ORDER AND IM WAS DELIVERED (SEE NOV). NOTED MOTTLING UE, BI-LAT. SPOKE WITH HCP R/T LABS AND HCP PLACED IN ANOTHER BMP R/T ELEVATED BUN AND CREATININE. LATER NOTED PT STANDING AT DOOR EXIT SEEKING, CHAIR PLACED IN HALLWAY AND PO FLUIDS OFFERED, PT STATED "GO AWAY AND " NOTED LATER AFTER PT BEING STANDING AT DOOR THE DARKER PURPLE MOTTLING COLOR IN UE, BI-LAT. AGAIN OFFERED PT PO FLUIDS OR SNACK, ICE CREAM, POPCICLES PT STATED "GO AWAY". WILL CONTINUE TO MONITOR PER [facility] PROTOCOL.
[2020-04-02 05:56] LABS: CALCIUM 10.3 mg/dL (8.5-10.1); CREATININE 2.1 mg/dL (0.6-1.0); POTASSIUM 4.2 mmol/L (3.5-5.1)
[2020-04-02 07:22] VITALS: BP 127/79
[2020-04-02 09:17] VITALS: BP 127/79
--- NOTE | 2020-04-02 09:26 | NUR ---
ASSUMED CARE AT 0700. PT. SITTING IN A CHAIR NEAR THE DOOR. PT. GOT UP AND WENT TO HER ROOM. SHE TOOK HER MORNING MEDICATIONS WITH VERY MUCH ENCOURAGEMENT. SHE KEEPS TELLING THIS LIBRARY DIRECTOR, "DO NOT TOUCH ME" IT KEEP INFORMING HER I WILL NOT TOUCH HER UNLESS SHE NEEDS TO BE. SHE REFUSED BREAKFAST AGAIN THIS MORNING. LABS REVIEWED WITH DR. BHAT VIA THE PHONE. AFTER HE ARRIVED HE LOOKED AT THE LABS IN THE COMPUTER AND CALLED PT'S AND TALKED TO HIM ABOUT HER STATUS.
--- NOTE | 2020-04-02 10:33 | NUR ---
RADHA called [facility] and left a VM about this pt being ready for d/c in a few days and that she would be using hospice services. Radha then faxed the updated notes. D/C could be later this week if pt declines quickly.
--- NOTE | 2020-04-02 12:56 | NUR ---
SUKHWINDER and Dr amos spoke with cyn and he provided his [facility] Millie's phone number [phone], he also reported to Dr Amos he wants the pt to be a full code again due to the pressures from the adult children.
--- NOTE | 2020-04-02 12:58 | NUR ---
[facility] does not take Medicaid. Radha sent the referral to [facility]
--- NOTE | 2020-04-02 16:16 | NUR ---
Sukhwinder confimred with cyn that Sky ( son) could be thedeignated visitor and Dr Amos provided the permission. SUKHWINDER added Sky to [employer], reported the visit for 04/03 at 10:45am with nursing and put it on the white board.Cyn will be available via telephone to discuss the treatment options
--- NOTE | 2020-04-02 19:24 | NUR ---
Care of patient assumed at 1915. Patient is sleeping in a recliner in the day room. This nurse approaches patient to complete assessment. Patient starts repeatedly saying "don't touch me, don't touch my chair, stay away from me". This nurse explains to patient that the assessment is required every shift and it is important to keep track of any changes that may occur. Patient adamantly refuses to allow assessment. Patient is noted to be breathing normally on RA. No distress noted. Attempted to gain medication compliance to no avail. At 2200 patient is chanting loudly right next to another patient who is sleeping. Recliner is moved across the room, with patient yelling "don't touch my chair" over and over. Patient continues to chant off and on, sleeping at times. At 0230 patient gets up of her own volition and retires to bed.
[2020-04-02 20:15] VITALS: BP 141/62
[2020-04-03 06:03] LABS: ALBUMIN 4.1 g/dL (3.4-5.0); CALCIUM 9.1 mg/dL (8.5-10.1); CREATININE 1.2 mg/dL (0.6-1.0); PHOSPHORUS 2.3 mg/dL (2.5-4.9); POTASSIUM 3.6 mmol/L (3.5-5.1)
[2020-04-03 07:27] VITALS: BP 139/70
--- NOTE | 2020-04-03 12:25 | NUR ---
UPON INITIAL ASSESSMENT THIS AM IS SITTING IN DAYROOM IN WC-CHIN TO CHEST POSURE NOTED-WHEN STAFF ATTEMPTED TO GENTLY PUSH FOREHEAD BACK GRIMACES AND MOANED SOFTLY STATING "IT HURST" TENSE,STIFF MUSCLES NOTED IN UPPER TORSO AND NECK-CHECKED FOR COGWHEEL RIGIDITY AND DRPalmira AT BEDSIDE TO ASSESS WELL. PT DOES STATE THAT NECK HURTS-BUT REFUSES OFFERS OF TYLENOL OR ANALGESIC MUSCLE CREAM. DID TAKE AM MEDS WITHOUT RSISTANCE-GAIT IS SLOW BUT STEADY WITH SBA X 1 STAFF. APPETITE POOR BUT DID TAKE SUPPLEMENTS WITH MUCH ENCOURAGEMENT. SPEECH SOFT,MUMBLED DIFFICULT TO UNDERSTAND
--- NOTE | 2020-04-03 12:49 | NUR ---
Radha met with pt's son Sky and Mike was on the phone with Dr luz. It was decided that a feeding tube would not be used and this pt would be discharging to [facility] or alternate placement if it can be estbalished next week. Radha sent referrals to [facility]. Sky visited with his mom in her room for about 20 minutes too.
--- NOTE | 2020-04-03 18:04 | NUR ---
HAS BEEN NAPPING INTERMITENTLY IN GERICHAIR IN DAYROOM-DOES REQUIRE ASSIST WITH TOILETING,WALKING D/T ATAXIA-FORWATRD LEANING POSTURE,POOR BALANCE. PLACED ON FALLS PRECAUTIONS-WITH YELLOW N-IZKPS-DSIBY AND WRIST ALERT BAND PLACED. COMPLAINTIVE WITH CARES-"WILL YOOU HELP WIPE MY BOTTOM I CAN'T DO IT" "THAT IS TOO HARD" "WASH CLOTH TOO COLD" "YOU SHOULD NEVER WIPE TWICE ONLY ONCE" SPEECH MUMBLED AND DIFFICULT TO HEAR BUT IS EATING BETTER-APPROX 45 PERCENT OF SUPPER-FEEDS SELF-IS SLOW BUT ABLE TO FEED SELF.
[2020-04-03 19:29] VITALS: BP 123/57
--- NOTE | 2020-04-04 02:31 | NUR ---
Care of patient assumed at 1915. Patient is dozing in a recliner at a tble in the day room. Patient wakens with some difficulty when this nurse attempts to administer HS meds. Patient covers her mouth and will not make eye contact or speak, indicating refusal of meds. Patient continues sleeping on/off in the recliner, and is still sleeping at the time this note is written.
--- NOTE | 2020-04-04 09:01 | NUR ---
ASSUMED CARE AT 0700 THIS MORNING. PT. IN RECLINING CHAIR. SHE HAS BEEN INCONTINENT. SHE WAS AMBULATED TO HER ROOM AND CHANGED. SHE DID NOT WANT TO GO BACK TO THE DINING ROOM AT THAT TIME. SHE RESTED IN BED. SHE WAS AGAIN CHANGED AT 0800. SHE WENT TO THE DINING ROOM FOR BREAKFAST. SHE IS INSISTING ON DESIGNATED STAFF TO ATTEND TO HER. SHE WAS PLACED AT A TABLE WITH HER BREAKFAST FOOD. SHE DID NOT ACT INTRESED IN THE FOOD AT THIS TIME.
--- NOTE | 2020-04-04 12:17 | NUR ---
SUKHWINDER sent updates to [facility] and requested that they consider if they can manage this pt . Pt was declined by [facility].
[2020-04-04 20:00] VITALS: BP 142/80
--- NOTE | 2020-04-05 01:32 | NUR ---
Care of patient assumed at 1915. Patient is sitting in her room with chest resting on thighs. Refuses assessment, yelling "Don't touch me! Get away from me!" when staff attempt to conduct phsyical assessment. Refuses to answer any assessment questions, merely stating "I'm not talking to you. I don't have to." Attempted assessment again when trying to administer HS meds. Patient refuses assessment again as well as medications.
[2020-04-05 07:49] VITALS: BP 144/54
[2020-04-05 10:16] VITALS: BP 144/54
--- NOTE | 2020-04-05 12:31 | NUR ---
1215 RESUMMED CARE FROM OVERNIGHT SHIFT THIS AM, PATIENT IN DAY ROOM IN A RECLINER SLEEPING. PATIENT TOOK MEDICATION CRUSHED IN YOGART PATIENT ALLOWED ASSESSMENT. PATIENTS ABDOMEN SOFT ROUND BOWEL SOUNDS PRESENT LUNGS CLEAR PATIENT DROOLING FROM ANTI PSYCHOTIC DRUG. PATIENT DENIES SI/HI/AH/VH AT PRESENT. PATIENT TALKED WITH TODAY ON PHONE, PATIENT IS MORE RECEPTIVE TO CARES QUIET COOPERATIVE SLEEPING OF AND ON. WILL CONTINUE TO MONITOR PATIENT FOR BEHAVIORS AND SAFETY.
[2020-04-05 19:41] VITALS: BP 115/41
--- NOTE | 2020-04-05 21:52 | NUR ---
Care assumed of patient at 1915: Patient resting in bed at start of shift. Patient easily aroused. Patient quite calm, pleasant and cooperative. Alert and oriented to person and place only. Confused and forgetful. Denies pain and discomfort. Soft spoken, poor eye contact. Flat affect. Answering yes/no questions appropriately. Patient took HS medication crushed in pudding without difficulty. Patient then ate full cup of pudding, fed by nurse. Patient incontinent of bladder. Walked to bathroom with assist x1. Cooperative with toileting, marixa care and linen changed. Patient even stated "thank you" and "I love you" when assisted back to bed. No delusional or paranoia behaviors observed. Denies SI/HI/AH/VH. Patient resting quietly in bed at this time.
[2020-04-06 06:23] LABS: CREATININE 0.8 mg/dL (0.6-1.0); POTASSIUM 3.2 mmol/L (3.5-5.1)
--- NOTE | 2020-04-06 11:16 | NUR ---
1100 RESUMMED CARE FROM OVERNIGHT SHIFT THIS AM, PATIENT IN ROOM DID NOT WANT TO GET OUT OF BED. PATIENT THIS AM DID NOT WANT TO EAT BREAKFAST I CRUSHED HER MEDICATION IN APPLESAUCE. PATIENT WAS GOING TO TRY TO SPIT THE MEDICATION OUT I TOLD HER IF YOU SPIT THE MED OUT I WILL HAVE TO GIVE YOU AN IM. PATIENTS BEHAVIORS HAS CHANGED FROM YESTERDAY; SHE DOES NOT WANT YOU TO TOUCH HER STATING GET OUT OF MY ROOM. I HAVE BEEN TRYING TO GIVE HER FLUIDS AND ENCOURAGE HER TO EAT. PATIENT WOULD NOT LET ME DO HER ASSESSMENT DOES DENY SI/HI/AH/VH AT PRESENT. WILL CONTINUE TO MONITOR PATIENT FOR SAFETY AND BEHAVIORS.
[2020-04-06 19:29] VITALS: BP 122/50
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
[2020-04-06 21:53] VITALS: BP 122/50
--- NOTE | 2020-04-07 06:36 | NUR ---
PATIENT SLEPT THRU NIGHT. ASSISTED PATIENT TO BATHROOM WALKING WITH 2 ASSIST. PATIENT APPEARS A LITTLE STRONGER THIS MORNING THAN LAST NIGHT. SHE IS LESS DROWSY. PATIENT RESTING IN BED. SHE DID TAKE HER LEVOTHYROID PILL WHOLE WITH WATER THIS AM. LAB DRAWN THIS MORNING. AWAITING BMP RESULTS. PATIENT STATES SHE HAS NOT EATEN ANYTHING SINCE BREAKFAST YESTERDAY. SHE REFUSED ALL FOOD AND DRINK EXCEPT FOR MEDS. PT WITH SLIGHT HEADACHE AND STOMACH ACHE THIS AM BUT WISHES TO REST TILL BREAKFAST. ASSUME SHE IS FEELING HUNGRY. REFUSED GLUCOSE CHECK OR FOOD AT THIS TIME. PATIENT HAS BEEN COOPERATIVE FOR MOST PART THIS MORNING. PATIENT'S EYES BOTH OPEN THIS MORNING EVENLY. BED ALARM IS ON AND BED IN LOW POSITION.
[2020-04-07 06:54] LABS: CREATININE 0.8 mg/dL (0.6-1.0); POTASSIUM 4.3 mmol/L (3.5-5.1)
[2020-04-07 07:22] VITALS: BP 123/56
--- NOTE | 2020-04-07 08:18 | EKG ---
[facility] [place] [address] ELECTROCARDIOGRAM REPORT Name: JEAN-PIERRE EPPS Room #: 521A-A ADM IN M.R.#: [id number] Admission: 03/30/20 Attend Phys: Mariano Amos DO Discharge: Date of : 50 Report #: [id number] THIS REPORT FOR: cc: Isiah Kim MD, Srinath MD Couchonnal, Luis F. MD ~ THIS REPORT FOR: //name// [facility] Test Date: 2020-04-06 Test Time: 15:00:13 Pat Name: JEAN-PIERRE EPPS Department: Room: 52 A Gender: F Bonderizer: HERNANDEZ : 1950 Requested By: Suzanne Ayon Order Number: [id number] MD: Wyatt Fonseca Measurements Intervals [place] Rate: 60 P: 59 AL: 174 QRS: 35 QRSD: 83 T: 43 QT: 431 QTc: 431 Interpretive Statements Sinus rhythm Compared to ECG 03/29/2020 09:41:22 Electronically Signed On 04-07-2020 8:17:54 CDT by Wyatt Fonseca [email or web address] <ELECTRONICALLY SIGNED> By: Wyatt Fonseca MD 04/07/20 0817 1500 1500 Wyatt Fonseca MD /EPI
--- NOTE | 2020-04-07 12:09 | NUR ---
RADHA and DR Amos spoke with Mike about the d/c plan. Radha also called [facility] to f/u about the referral that was sent last week. Left a VM. D?C is expected by TR or Fri.
--- NOTE | 2020-04-07 15:40 | NUR ---
[facility] doesnot have any beds available. Radha called [facility] and left another . RADHA then sent new referrals to [facility] and [facility]
--- NOTE | 2020-04-07 17:57 | NUR ---
pT WAS IN HER ROOM MOST OF THE DAY WITH GREAT ENCOURAGEMENT SOME FLUIDS WERE TAKEN, DIETARY DEPT. VISITED AND WANTS ALL FOOD EATEN, HOW MUCH AND AMOUNT DRANK LORELEI CELAYA AT [facility] STATION. ALL OF A SMALL PIZZA WAS EATEN, 2 PICES OF HONEY DEW AT DINNER. . A TOTAL OF ABOUT 38 OZ OF H2O WAS DRANK THIS SHIFT. wHEN SIMA DOESNOT WANT TO DO SOME THING SHE SAYS "YOUR GOINT O GIVE ME A HEART ATTACK IF YOU MAKE T ME DO,,," IE TAKE HER PILLS EAT, DRINK ECT. s SHE "I WANT TO DO IT MY WAY . AT TIMES IT HAS TO BE SAID & REMINDED THAT IF THERE IS NO PO PILL TAKEN IM IS ORDERED BY THE DR. pT DID GO INTO THE DAY ROOM FOR A SHORT PERIO TODAY. AM ASSESMENT WAS FOLLOES, LUNGS CLEAR,WITH DEMINISHED SOUND, BOWEL SOUNDS FAINT, PEDAL PULSE, FAINT, AND RT ANKLE SWOLLEN, NO PITTING EDEMA NOTED. STAFF WILL CONTINUE TO MONITOR.
[2020-04-07 18:20] VITALS: BP 123/56
[2020-04-07 21:00] VITALS: BP 123/56
--- NOTE | 2020-04-07 23:43 | NUR ---
PATIENT WAS SITTING IN BATHROOM WHEN I CAME ON SHIFT. SHE DID HAVE A BM TODAY. SHE WAS CALM AND COOPERATIVE TONIGHT. SHE WAS ABLE TO WALK BACK TO HER BED WITH ASSIST X 1. SHE DID HAVE SOME APPETITE TONIGHT AND ATE 2 VANILLA SNACK PUDDINGS SF. SHE ALSO HAD ABOUT 100CC WATER WITH HER HS MEDS THAT SHE TOOK WHOLE AND WITHOUT INCIDENT. SHE DENIES SI/HI. SHE STATES THE ONLY VOICES SHE HEARS ARE THE ONES SHE KNOWS. I ASKED WHO THEY WERE AND SHE STATES GOD, ALEJA, AND HER LINDA FRIENDS. THEY HAVE NOT INSTRUCTED HER TONIGHT TO DO ANYTHING. SHE HAS BEEN CALM AND COOPERATIVE AND APPROPRIATE. SHE HAS SAID PLEASE AND THANKYOU. SHE DENIES PAIN. HER BOWEL SOUNDS ARE ACTIVE X 4 QUADS TONIGHT. BED IN LOW POSITION. BED ALARM ON AND ROUTINE ROUNDING TO ASSESS SAFETY AND STATUS OF PATIENT.
[2020-04-08 07:31] VITALS: BP 116/50
[2020-04-08 09:00] VITALS: BP 116/50
--- NOTE | 2020-04-08 09:05 | NUR ---
PT SITTING ON SIDE OF BED WITH AIDE SITTING BESIDE HER ENCOURAGE HER TO EAT BREAKFAST. PT TAKING MEDS WITH ENCOURAGEMENT. PT LUNGS CLEAR. PT DIDN'T LIKE TO BE TOUCHED. PT DENIES PAIN. PT HEAD DOWN AND ASKED IF HER NECK HURT. PT DIDN'T RESPOND TO HAVING PAIN.
--- NOTE | 2020-04-08 10:00 | NUR ---
OFFERED FRESH WATER. PT STATED GET OUT OF HERE, MY WILL GET ME WATER. PT YELLED AT NURSE TO KEEP AWAY FROM HER.
--- NOTE | 2020-04-08 12:00 | NUR ---
SUKHWINDER called [facility] and was asked to resend the referral, Sukhwinder then called More[facility] Mckeon, Vimal lu and [facility] for f/u and then left a VM.
--- NOTE | 2020-04-08 13:27 | NUR ---
Radha spoke with Lynn at and they are interested in accepting this pt.
--- NOTE | 2020-04-08 13:48 | NUR ---
Radha spoke with enrqiue and provided an update - ythis inlcuced labs and progress notes. Sw provided update about d/c plans and possible placement. Enrique was seekign reassurance that his mom wasnt in m=need of immediate hospice care. Radha will relay this concern to Dr luz. enrique also asked to visit again- Radha will ask Dr luz
--- NOTE | 2020-04-08 15:10 | NUR ---
PT RESTING IN BED WITH EYES CLOSED. PT TOOK OFF HER CLOTHES WHEN GOING TO BATHROOM AROUND 1400. PT HAS STAYED IN ROOM TODAY. NOT PARTICIPATING IN GROUP OR COMING OUT TO DINING ROOM TO EAT.
--- NOTE | 2020-04-08 16:06 | NUR ---
[facility] called and denied this pt as they cannot meet her needs.
--- NOTE | 2020-04-08 16:36 | NUR ---
PT IN BATHROOM ON TOILET. PT WANTING HELP GETTING BACK TO BED. ASSISTED PT GETTING DRESSED ON TOILET. PT WALKED SLOW TO BED. PT TOOK ANTIANXIETY MED WITHOUT ANY ISSUES.
[2020-04-08 20:00] VITALS: BP 112/51
[2020-04-08 20:06] VITALS: BP 112/51
--- NOTE | 2020-04-09 01:53 | NUR ---
PATIENT HAS BEEN LAYING IN BED WITH HOB UP 30 DEGREES. SHE DID EAT A SNACK PUDDING TONIGHT AND TOOK HER HS MEDS WHOLE WITH 120ML OF WATER. PATIENT DENIES PAIN, SI/HI. SHE DOES OCCASIONALLY HAVE AUDITORY HALLUCINATIONS OF GOD,ALEJA, AND HER LINDA FRIENDS SPEAKING TO HER. SHE HAS BEEN CALM AND COOPERATIVE. SHE STATES TONIGHT THAT SHE IS GOING TO . SHE STATES SHE JUST HAS THAT FEELING. SHE STATES SHE'S NOT AFRAID TO AND SHE WANTS TO THANK ME FOR CARING FOR HER AND TO TELL THE NURSE RJ ZAMBRANO FOR HER. SHE STATES RJ IN HER DAUGHTER. PATIENT HAS BEEN WALKING WITH ASSIST X 1 TO THE BATHROOM NEEDED TO VOID. BED ALARM IS ON D/T SHE IS GROGGY FROM TRAZADONE AND LORAZEPAM. CONTINUING TO MONITOR AND TRYING TO PUSH FLUIDS AND FOOD. ROUTINE ROUNDS TO ASSESS SAFETY AND STATUS OF PATIENT.
[2020-04-09 07:53] VITALS: BP 116/46
[2020-04-09 10:37] VITALS: BP 116/46
--- NOTE | 2020-04-09 12:27 | NUR ---
1220 RESUMMED CARE FROM OVERNIGHT SHIFT THIS AM, PATIENT IN ROOM LYING IN BED. I GOT PATIENT UP TO EAT BREAKFAST AND TO TAKE HER MEDICATION; PATIENT TOOK PILLS WHOLE FOR ME WITH LOTS OF ENCOURAGEMENT. PATIENTS ABDOMEN SOFT ROUND BOWEL SOUNDS PRESENT. PATIENTS LUNGS CLEAR PATIENT DENIES SI/HI/VH DOES HAVE AH ALEJA TELLING HER NOT TO DO WHAT WE ASK OF HER. PATIENT SHOULD STAY IN DAYROOM LONG POSSIBLE. WHEN SHE IS IN HER ROOM SHE DECLINES, SHE DID FEED HERSELF LUNCH. PATIENT QUIET SOMETIMES COMPLIANT, WILL CONTINUE TO MONITOR PATIENT FOR SAFETY AND BEHAVIORS.
--- NOTE | 2020-04-09 12:42 | NUR ---
Calorie count is complete. Continue to offer pts food preferences and encourage at least 2 ensure enlive supplements per day. Will follow up again on 04/15.
[2020-04-09 19:18] VITALS: BP 121/49
--- NOTE | 2020-04-09 19:24 | NUR ---
Care of patient assumed at 1915. Patient is in the bathroom. Denies needs or concerns. When patient exits the bathroom, this nurse attempts to compelte assessment. Patient refuses assessment. Patient laying in bed when medications are brought to her. Initially refuses medications, then agrees to take them. Sleeping shortly after med pass.
[2020-04-10 07:17] VITALS: BP 124/79
--- NOTE | 2020-04-10 15:44 | NUR ---
REMAINS RESISITVE WITH ATTEMPTS TO COAX HER OUT OF ROOM-DID NOT OFFER PHYSICAL RESISTANCE TO TWO STAFF PLACING HER IN GERICHAIR AND BRING OUT FOR BREAKFAST AND LUNCH-DID SIT IN ON AM RT TRIVIA GROUP BUT OFFERS NO VERBAL RESPONSES DESPITE PROMPTING. STATES SEVERAL TIMES "I DON'T WANT TO" WHEN PHYSICALLY ASSISTED WITH EATING,TAKING PILLS,ADL'S TOILETING ETC. DOES NOT INITITATE ANY SELF CARES ON OWN. DENIES A/V HALLUCINATIONS WHEN ASKED BUT WHEN ASKED IF SHE HAD HEARD GODS VOICE STATES "YES-I DO EVERYDAY-HE TELLS ME WHAT TO DO"FLAT AFFECT. CONTINUES WITH CHIN TO CHEST POSTURE BUT NO DROOLING OR COGWHEEL RIGIDITY NOTED UPON EXAM. DENIES NECK PAIN OR ANY OTHER TYPE OF PAIN/DISCOMFORT. DID EAT 70 PERCENYT OF LUNCH AND DIETERY SUPPLEMENT WITH SET UP ONLY PROVIDED. TAKES MEDS CRUSHED IN JELLY BUT WILL STAY "NO MORE" AFTER ONE-TWO BITES.
[2020-04-10 20:08] VITALS: BP 113/52
--- NOTE | 2020-04-10 20:21 | NUR ---
Assumed care on 04/10/20 @ 19:15, seated in a isac chair in the day room. Refused assessment, Able to give own name, president's name, but not date of or todays date, not able to name hospital, does not acknowledge that she is in a hospital. States, go away, leave me alone.
[2020-04-10 22:45] VITALS: BP 113/52
--- NOTE | 2020-04-11 05:53 | NUR ---
Took HS meds crushed in strawberry jelly. Retired to bed @ , slept well, bed in low position and bed alarm set. Awoke twice in the night, x1 incontinent of bladder and a second time continent of bladder. Asked for a cup and drank some water. Returned to bed each time without incidence. Extremities noted to have some edema.
--- NOTE | 2020-04-11 11:28 | NUR ---
Radha spoke with [facility] and confimed that they have a LTC unit and will be accepting this pt back on Tuesday. Radha reported that a hospice consult might be approapriate and they stated they will take care of that. Radha then called Mike and provided a report. RADHA asked baout transportation and he wants this worker to set up [facility]. Mike is satisfied with this outcome .
--- NOTE | 2020-04-11 12:09 | NUR ---
WALKED TO DAYROOM WITH ASSIST OF 1 STAFF THIS AM AT APPROX 0720-OFFERED NO PHYSICAL RESISTANCE ALTHOUGH VERBALIZING "NO NO ALEJA SAYS NO" ASSSITED TO TABLE AND DID DRINK 240CC ICE WATER-HOWEVER WHEN STAFF OUT OF DAYROOM TO TAKE PHONE CALL STOOD UP AND BEGAN TO WALK BACK TOWARD ROOM WHEN APPROACHED BEGAN TO STRIKE OUT AT STAFF YELLING "ALEJA WILL STRIKE YOU DOWN-YOU WON'T LIVE ANOTHER DAY" REFUSED TO COME OUT OF ROOM FOR BREAKFAST OR GROUP-LYING IN BED LOOKING AT CEILING MUTTERING UNDER BREATH TO SELF. DID TAKE AM MEDS CRUSHED IN PUDDING ALONG WITH AM ENSURE
--- NOTE | 2020-04-11 15:14 | NUR ---
FIRST COAT OPERATOR met 1;1 with patient instead of group participation. Patient encouraged and allowed self care practices- shampoo shower cap, hand massage, and lotion. Appreciative of this and smiling upon compliments from other staff regarding her clean hair.
[2020-04-11 20:15] VITALS: BP 135/53
--- NOTE | 2020-04-12 05:08 | NUR ---
04-11-20 CARE TRANSFERED 1914 OBSERVED PT SITTING IN RECLINER IN DAY ROOM. 2030 PT AAOX1, VSS, RR EVEN AND NONLABORED ON RA. 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 PT HAD NO DIFFICULTIES WITH MEDICATION. LATER PT WAS YELLING OUT ALEJA! ALEJA! THEN WENT INTO CHANTING, THIS BECAME INTERMITT THROUGHOUT THE EVENING. ZERO S/S OF ACUTE EMOTIONAL OR MEDICAL STRESS NOTED. WILL CONTINUE TO MONITOR PER [facility] PROTOCOL.
[2020-04-12 07:03] VITALS: BP 130/54
[2020-04-12 09:41] VITALS: BP 130/54
--- NOTE | 2020-04-12 10:21 | NUR ---
1020 RESUMMED CARE FROM OVERNIGHT SHIFT THIS AM, PATIENT IN DAY ROOM QUIET IN RECLINER. PATIENT ATE ABOUT 80% OF BREAKFAST TOOK MEDICATION WITHOUT INCIDENCE. PATIENTS ABDOMEN SOFT ROUND BOWEL SOUNDS PRESENT LUNGS CLEAR. PATIENT DENIES SI/HI/VH HAS SOME AH TELLING THAT ALEJA TALKING TO HER AT TIMES. PATIENT HAS NOT DISPLAYED ANY BEHAVIORS WILL CONTINUE TO MONITOR FOR SAFETY AND BEHAVIORS.
[2020-04-12 12:53] LABS: CALCIUM 9.7 mg/dL (8.5-10.1); CREATININE 0.9 mg/dL (0.6-1.0); POTASSIUM 3.9 mmol/L (3.5-5.1)
[2020-04-12 20:24] VITALS: BP 119/70
--- NOTE | 2020-04-13 04:23 | NUR ---
04-12-20 CARE TRANSFERED 0 OBSERVED PT SUPINE IN BED RESTING WITH EYES CLOSED. 2030 PT AAOX1, VSS, RR EVEN AND NONLABORED ON RA. PT DENIES PAIN AND SI/HI, PT REFUSES ANY FURTHER NURSING ASSESSMENT; PT BEGAIN CHANTING AND TALKING TO SELF, PT PRESENTED WITH AGITATION AND RESISTANCE TO CARES. DURING MEDICATION ADMIN. PT REPORTED SHE COULD NOT TAKE ANY MEDICATION FOR SHE IS PREGANT. PT REFUSED MEDICATION, HAD HUMAN GEOGRAPHY INSTRUCTOR ATTEMPT AND PT TOOK MEDICATION. LATER PT WAS TRING TO GO INTO ANOTHER PT ROOM AND WAS REDIRECTED TO HER ROOM. NOTED PT WAS SITTING IN RECLIER RESTING WITH EYES CLOSED IN DAY ROOM. ZERO S/S OF ACUTE EMOTIONAL OR MEDICAL DISTRESS, WILL CONTINUE TO MONITOR PER [facility] PROTOCOL.
[2020-04-13 06:22] LABS: ABSOLUTE NEUTROPHILS 2.6 thou/uL (1.4-8.2); BASOPHILS 0.4 % (0.0-2.0); EOSINOPHILS 1.7 % (0.0-3.0); HEMATOCRIT 39.3 % (37.0-47.0); HEMOGLOBIN 13.2 gm/dL (12.0-15.0); LYMPHOCYTES 36.2 % (24.0-44.0); MCH 30.6 pg (26.0-34.0); MCHC 33.5 g/dL (28.0-37.0); MCV 91.2 fL (80.0-100.0); MONOCYTES 9.2 % (1.0-8.0); PLATELET COUNT 160 thou/uL (150-400); POLYS 52.5 % (36.0-66.0); RDW 14.1 % (10.5-14.5)
[2020-04-13 07:15] LABS: ALBUMIN 3.3 g/dL (3.4-5.0); CALCIUM 9.8 mg/dL (8.5-10.1); CREATININE 0.8 mg/dL (0.6-1.0); MAGNESIUM 2.1 mg/dL (1.8-2.4); PHOSPHORUS 4.2 mg/dL (2.5-4.9); POTASSIUM 3.7 mmol/L (3.5-5.1); TOTAL BILIRUBIN 0.5 mg/dL (0.2-1.0); TOTAL PROTEIN 6.6 g/dL (6.4-8.2)
[2020-04-13 10:31] VITALS: BP 132/80
--- NOTE | 2020-04-13 11:55 | NUR ---
1130 RESUMMED CARE FROM OVERNIGHT SHIFT THIS AM, PATIENT IN ROOM IN BATHROOM NAKED. I HAD TO PUT CLOTHES ON THE PATIENT AND BROUGHT HER TO THE DAY ROOM FOR BREAKFAST. PATIENT ATE SMALL AMOUNT TOOK MEDICATION WITHOUT INCIDENCE. PATIENTS ABODOMEN SOFT ROUND BOWEL SOUNDS PRESENT PATIENTS LUNGS CLEAR; PATIENT HAS SOME BRUISES ON BOTH HANDS. PATIENT HAS 3+ EDEMA IN LEFT LEG AND FEET EDEMA AND SWOLLEN. I HAD PATIENT PUT HER FEET UP IN RECLINER PATIENT GOT COVID TEST TODAY. PATIENT DENIES AI/HI/VH STILL TAKES ABOUT ALEJA TALKING TO HER AND TELLING NOT TO DO CERTAIN THINGS. WILL CONTINUE TO MONITOR PATIENT FOR BEHAVIORS AND SAFETY.
[2020-04-13 20:18] VITALS: BP 152/55
--- NOTE | 2020-04-14 05:23 | NUR ---
04-13-20 CARE TRANSFERED 1899 OBSERVED PT SITTING IN RECLINER IN DAY ROOM RESTING WITH EYES CLOSED. 1950 PT AAOX1, VSS, RR EVEN AND NONLABORED ON RA; PT COMBATIVE AND UNCOOPERATIVE, REFUSED NURSING ASSESSMENT. DURING MEDICATION ADMIN, PT REFUSED MEDICATION, 2ND ATTEMPT BY DIFFERENT NURSE PT REFUSED, 3RD ATTEMPT PT DID ACCEPT FROM MEDICATION FROM CHILD DEVELOPMENT CONSULTANT. LATER NOTED PT YELLING OUT ALEJA, PT REPORTED THAT ALEJA SPOKE TO HER AND SHE WAS TO YELL OUT HIS NAME. ZERO S/S OF ACUTE EMOTIONAL OR MEDICAL DISTRESS, WILL CONTINUE TO MONITOR PER [facility] PROTOCOL.
[2020-04-14 07:32] VITALS: BP 120/42
[2020-04-14 12:00] VITALS: BP 120/42
--- NOTE | 2020-04-14 12:10 | NUR ---
Sw called [facility] and confirmed that pt will d/c tomorrow at 10 am. Family was notified last week[facility]
[2020-04-14 19:54] VITALS: BP 132/71
--- NOTE | 2020-04-14 20:24 | NUR ---
Assumed care on 04/14/20 @ 19:15, in bed room with door closed, patient tends to close her door, however denies it at this time. Seated in the day room when assessment provided, HRRR, Lungs sounds diminished, however patient did not breathe deeply as instructed for lung assessment. Will continue to monitor as per protocol for patient safety and comfort.
[2020-04-15 00:52] VITALS: BP 132/71
--- NOTE | 2020-04-15 02:01 | NUR ---
COMPLIANT WITH MEDICATION ADMINISTRATION, TAKING MEDS CRUSHED IN STRAWBERY JELLY. RETIRED TO BED @ HS, BED IN LOW POSITION, BED ALARM SET, WILL CONTINUE TO MONITOR PER PROTOCOL FOR PATIENT SAFETY AND COMFORT.
--- NOTE | 2020-04-15 06:11 | NUR ---
Slept 7.6 hours overnight.
--- NOTE | 2020-04-15 08:00 | NUR ---
PT KNEELING ON FLOOR IN BATHROOM. PT REFUSING TO HAVE HELP TO GET HER UP, PT SCREAMING IF SOMEONE IS TOUCHING HER. PT WANTED TO BE LEFT ALONE.
[2020-04-15 09:00] VITALS: BP 132/71
--- NOTE | 2020-04-15 09:30 | NUR ---
PT ROOMMATE NEEDED TO USE BATHROOM AND PT IS STILL KNEELING ON FLOOR. THIS VALUATION CONSULTANT GOT ASSISTANCE FROM OTHER STAFF TO HELP PT GET UP AND INTO A WHEELCHAIR. PT DIDN'T SCREAM AT STAFF.
--- NOTE | 2020-04-15 09:43 | NUR ---
Sukhwinder recieved a call yesterday from pt's son Sky with [employer] about the d/c . SUKHWINDER attmepted to reassure him that d/c was apparopraite and that Dr Amos would only speak with Mike spouse and guardian. SUKHWINDER had already confirmed with [facility] about the d/c. COVID test is completed and submitted as neg. D/C is still expected at [address] Amos orders. SUKHWINDER relayed this information to Dr Amos.
[2020-04-15] MEDS ORDERED: FLUPHENAZINE HC10 MG PO (09:59)
[2020-04-15] MEDS ORDERED: PEPCID20 MG PO (10:00)
[2020-04-15] MEDS ORDERED: FOLIC ACID1 MG PO (10:02)
--- NOTE | 2020-04-15 10:07 | NUR ---
OFFERED PT ORAL MEDICATION TO TAKE. PT STATED GET AWAY FROM ME OR ELSE. PT RECIEVED IM OF VIT B12 AND ALSO FLUPHENAZINE 5MG IM. PT GETTING READY TO DISCHARGE TO [facility].
--- NOTE | 2020-04-15 10:14 | NUR ---
SUKHWINDER and Dr luz spoke with Mike and reported about the d/c and that this was appropriate today. Mike was satisfied with this explaination.
--- NOTE | 2020-04-15 10:15 | NUR ---
PT PLACED IN W/C AND TAKEN DOWN STAIRS X2 STAFF TO W/C VAN. PT ABLE TO TRANSFER SELF TO W/C. PT DIDN'T WANT THIS STERILISATION TECHNICIAN TO HELP HER GET OUT OF W/C.
--- NOTE | 2020-04-15 11:11 | NUR ---
GAVE REPORT TO WANDY AT [facility]. PT JUST ARRIVED TO FACILITY.
--- NOTE | 2020-04-16 23:24 | D ---
[facility] [place] [address] DISCHARGE SUMMARY Name: JEAN-PIERRE EPPS Room #: 521A-A [facility] IN M.R.#: [id number] Admission: 03/30/20 Attend Phys: Mariano Amos DO Discharge: 04/15/20 Date of : 50 Report #: [id number] THIS REPORT FOR: cc: Isiah Kim MD, Srinath MD Kerstein, Andrew H. DO ~ THIS REPORT FOR: //name// CC: Mariano Amos Flavia Charlene Kim DATE OF SERVICE: 04/15/2020 INPATIENT PSYCHIATRIC DISCHARGE SUMMARY ATTENDING PHYSICIAN: Mariano Amos DO PEDIATRIC ONCOLOGY NURSE: Dr. Howell. DISCHARGE DIAGNOSES: Schizophrenia and neurocognitive disorder, unspecified. DISCHARGE PLAN: The patient is discharging to her long-term memory care unit at [facility]. Psychiatric and medical care to be provided by receiving facility. DISCHARGE MEDICATIONS: Fluphenazine 10 mg oral twice per day, famotidine 20 mg oral twice per day Rx given for a 30-day supply of both of those. Fluphenazine is for her schizophrenia. Folic acid 1 mg oral daily for supplementation, levothyroxine 25 mcg oral daily, lorazepam 0.5 mg oral 3 times a day p.r.n. for anxiety and agitation, cholecalciferol 5000 International Units daily for supplementation, nitroglycerin 0.4 mg sublingual p.r.n. every 5 minutes for chest pain up to times three. Lasix 40 mg oral daily p.r.n. for edema. Haldol was discontinued this admission as was zolpidem and Lovenox. THE PATIENT'S DIET IS FOLLOWS: Regular. ACTIVITY LEVEL: As tolerated. The patient does require 24/ care and assistance. DISCHARGE LABORATORY DATA: Of note, this admission on 04/13/2020. CBC: White count 5.0, H and H 13.2 and 39.3, platelet count 160. Chemistry: Sodium 140, potassium 3.7, chloride 102, bicarbonate 31, anion gap 7, BUN 30, creatinine 0.8, estimated GFR 71, glucose 93, calcium 9.8, phosphorus 4.2, magnesium 2.1, total bilirubin 0.5, AST 27, ALT 52, alkaline phosphatase 75, total protein 6.6, albumin 3.3. COVID-19 PCR serology on 04/13/2020 was not detected. Urinalysis [address] [address] DISCHARGE SUMMARY Name: JEAN-PIERRE EPPS Room #: 521A-A [facility] IN [facility]#: [id number] Admission: 03/30/20 Attend Phys: Mariano Amos, Discharge: 04/15/20 Date of : 50 Report #: [id number] this admission was negative on 03/21/2020. REASON FOR ADMISSION: Actually as I think about it, the patient was readmitted after a brief medical stay for bradycardia and ST elevation on EKG. The patient has had a worsening psychosis in the nursing facility. HOSPITAL COURSE: After readmission, the Haldol was suspected of being causative to her cardiac concerns, so she was switched to fluphenazine, which is a phenothiazine antipsychotic that was titrated up from 2.5 mg twice daily. Earlier on, there were several backup injections given. The patient had had a waxing and waning course, couple of days of better behavior and worse behavior. She is typically not assaultive, but was at times pacing, freezing in unusual ways. At the day of discharge, the patient was showing some opposition to going to a penitentiary, but she did not resist being addressed. Several family meetings were held with her guardian Jameson, who is her and he is on dialysis and oxygen ____. It was explained that the patient was required to get 30 days' notice in eviction setting from penitentiary, this is really not a good reason why she cannot be managed in a less restrictive setting at this point and her behaviors are going to be odd and at times bothersome, but not generally dangerous. PHYSICAL EXAMINATION: VITAL SIGNS THIS ADMISSION: Temperature 36.3, pulse 114, respirations 20, BP 132/70, O2 sat wnl. MUSCULOSKELETAL: Atrophic appearing extremities. PSYCHIATRIC: wd/fn wf nad attention/concentration impaired speech soft, irregula psychomotor agitation. No psychomotor retardation. Mood and affect congruent, constricted. No SI/No HI Memory not formally tested. Insight impaired and judgment very limited. Fund of knowledge is well below average. PROGNOSIS: For this patient is guarded given her chronicity of mental illness, being under guardianship in the penitentiary placement, at times refusing food and medication. Her is aware of this who is her guardian and that as soon as she stops eating for several days, she would likely be considered a hospice candidate. <ELECTRONICALLY SIGNED> By: Mariano Amos DO 04/16/20 [id number] Mariano Amos DO /nt
== END 2020-04-15 10:15 | DRG 885 ==
LOC: SBH 13:58
PROVIDERS: Hospitalist; Internal Medicine; Nurse Practitioner; Nurse Practitioner Psychiatric/Mental Health; ADMIT Psychiatry & Neurology Psychiatry; ATTEND Psychiatry & Neurology Psychiatry
DX: F20.9 Schizophrenia, unspecified (principal); N17.9 Acute kidney failure, unspecified; G92 Toxic encephalopathy; F03.91 Unspecified dementia, unspecified severity, with behavioral disturbance; E03.9 Hypothyroidism, unspecified; M19.90 Unspecified osteoarthritis, unspecified site; F41.9 Anxiety disorder, unspecified; E78.5 Hyperlipidemia, unspecified; E53.8 Deficiency of other specified B group vitamins; I10 Essential (primary) hypertension; F31.9 Bipolar disorder, unspecified; Z79.899 Other long term (current) drug therapy; Z88.8 Allergy status to other drugs, medicaments and biological substances; Z03.818 Encounter for observation for suspected exposure to other biological agents ruled out
CPT/HCPCS: 10880